=== PATIENT | male | born 1960 | race Caucasian/White ===

== ENCOUNTER 2021-07-17 06:48 | Day surgery (SDC) | payer BC ==
[~2021-07-17] VITALS: Ht 172.7 cm; Wt 81.6 kg
[~2021-07-17 06:48] MED LIST: ALPRAZOLAM0.25 MG PO; ASPIRIN81 MG PO; B121000 MC1 PO; BUPROPION100 MG PO; D31000 UNIT PO; FISH OIL1000 MG PO; LISINOPRIL20 MG PO; LISINOPRIL5 MG PO; MULTIVITAMI9 PO; SOLFIBER1 POW PO; TAMSULOSIN HCL0.4 MG PO; TESTOSTERON100 MG/ML IM; VITAMIN C500 MG PO; ZOCOR10 MG PO
--- NOTE | 2021-07-17 11:13 | NUR ---
PER DR MONTES DE OCA, REPEAT COLONOSCOPY IN 10 YEARS, HIGH FIBER DIET, AND OVER THE COUNTER SUPPOSITORIES IF NEEDED. I EXPLAINED THE SAME TO THE PATIENT. HE STATED HE UNDERSTOOD AND DID NOT HAVE ANY QUESTIONS OR CONCERNS.
[2021-07-17 11:23] VITALS: BP 123/66
== END 2021-07-17 09:30 | disposition home or self-care (01) | DRG 951 ==
LOC: ENDO 06:48
PROVIDERS: ATTEND Surgery
PROC: 0DJD8ZZ Inspection of Lower Intestinal Tract, Via Natural or Artificial Opening Endoscopic (ICD-10-PCS; principal; 2021-07-17)
DX: Z12.11 Encounter for screening for malignant neoplasm of colon (principal); K64.8 Other hemorrhoids; I10 Essential (primary) hypertension

== ENCOUNTER 2021-11-08 08:40 | Day surgery (SDC) | payer BC ==
[2021-11-08] MEDS ORDERED: PERCOCET 5/321 COMBO PO (10:28)
[2021-11-08 12:00] VITALS: BP 144/101
== END 2021-11-08 12:20 | disposition home or self-care (01) | DRG 419 ==
LOC: ORM 08:40
PROVIDERS: ATTEND Surgery
PROC: 0FT44ZZ Resection of Gallbladder, Percutaneous Endoscopic Approach (ICD-10-PCS; principal; 2021-11-08)
DX: K80.10 Calculus of gallbladder with chronic cholecystitis without obstruction (principal); I10 Essential (primary) hypertension
CPT/HCPCS: J0131; J1610; Q9967

== ENCOUNTER 2024-05-24 08:06 | Day surgery (SDC) | payer OTHER ==
[~2024-05-24] VITALS: Ht 172.7 cm; Wt 84.8 kg
[~2024-05-24 08:06] MED LIST changes: +IS-ZC 50 50 MG1 TAB; +L-LYSINE500 M2 PO; +PERCOCET 5/321 COMBO PO; +UNISOM PO
[2024-05-24] MEDS ORDERED: LACTATED RINGER'S 1,000 ML IV ONE (08:19)
[2024-05-24] MEDS ORDERED: FAMOTIDINE 10MG/ML 2ML SDV IV ONE (08:19)
[2024-05-24 10:14] VITALS: BP 126/88
[2024-05-24] MEDS ORDERED: GLYCOPYRROLATE 0.2 MG/ML IV ONE (11:47)
[2024-05-24] MEDS ORDERED: PROPOFOL 200 MG/20 ML VIAL IV ONE (11:47)
[2024-05-24] MEDS ORDERED: LIDOCAINE HCL 2% 2ML SDV IV ONE (11:47)
== END 2024-05-24 10:22 | disposition home or self-care (01) ==
LOC: ORM 08:06
PROVIDERS: ATTEND Internal Medicine Gastroenterology
DX: D12.3 Benign neoplasm of transverse colon (principal); K64.8 Other hemorrhoids; I10 Essential (primary) hypertension; E11.9 Type 2 diabetes mellitus without complications; E78.5 Hyperlipidemia, unspecified; E29.1 Testicular hypofunction; F41.9 Anxiety disorder, unspecified; Z87.891 Personal history of nicotine dependence; Z90.49 Acquired absence of other specified parts of digestive tract